=== PATIENT | female | born 1995 | race Caucasian/White ===

== ENCOUNTER 2021-10-18 14:28 | Outpatient (CLI) | payer OTHER | END 2021-10-18 14:30 | disposition home or self-care (01) | LOC: LAB 14:28 | DX: U07.1 COVID-19 (principal) ==

== ENCOUNTER 2021-10-20 09:15 | Outpatient (CLI) | payer OTHER | END 2021-10-20 09:20 | disposition home or self-care (01) | LOC: LAB 09:15 | PROVIDERS: ATTEND Preventive Medicine Occupational Medicine | DX: U07.1 COVID-19 (principal) ==